=== PATIENT | female | born 1990 | race Caucasian/White ===

== ENCOUNTER 2020-11-14 13:16 | Emergency (ER) | payer OTHER, SELFPAY ==
--- NOTE | ~2020-11-14 | XR_ITS ---
EXAMINATION: XR foot RT min 3V DATE: 11/14/2020 13:39 INDICATION: Right foot injury. TECHNIQUE: 4 views of right foot were obtained. COMPARISON: None. FINDINGS: Bone alignment is normal. No fracture. Joint spaces are well maintained. IMPRESSION: 1. Normal right foot. Reviewed, dictated and finalized at location B. IMPRESSION: 1. Normal right foot.
--- NOTE | 2020-11-14 13:22 | ED.LOWEXIN ---
HPI - Extremity Injury (Lower) General Chief Complaint: Extremity Injury, Lower Stated Complaint: Right Foot Pain Time Seen by Provider: 11/14/20 13:44 Source: patient and RN notes reviewed Mode of arrival: ambulatory Limitations: no limitations History of Present Illness HPI Narrative: 30-year-old female presents with concern for right foot pain, bruising, swelling. Reports yesterday she rolled her foot causing lateral foot pain, dorsal bruising. Reports she has been using an Yayo wrap. Reports she tried to go to work this morning wearing an Yayo wrap however was in too much pain to be able to work. She denies decreased strength, sensation, range of motion. MD complaint: foot injury Related Data Home Medications Medication Instructions Recorded Confirmed Bc Pill 11/14/20 Allergies Allergy/AdvReac Type Severity Reaction Status Date / Time fexofenadine [From Norma] Allergy Rash Verified 11/14/20 13:39 Review of Systems Review of Systems: Narrative: CONSTITUTIONAL: Denies malaise, chills, sweats, or fever. SKIN: Denies lacerations or abrasions MUSCULOSKELETAL: Reports right foot pain, bruising, swelling. Denies decreased strength, range of motion NEUROLOGIC: Denies numbness, weakness All systems reviewed & are unremarkable except as noted in HPI and below PMFSH Comments At time of signature, agree with nursing past medical, surgical, social and family history. There is no relevant family history pertinent to the presenting complaint Exam Narrative: Exam Narrative: GENERAL: Well-appearing, well-nourished, and in no acute distress. HEAD: Normocephalic, atraumatic. EYES: PERRLA, conjunctivae clear NECK: Supple. CHEST: Speaks in full sentences. No respiratory distress. HEART: Regular rate and rhythm. Normal and equal peripheral pulses. EXTREMITIES: Right foot, digits of right foot have normal strength and sensation, normal range of motion. Moderate dorsal lateral edema, mild dorsal at the base of the digits 3, 4, 5 ecchymosis. 5/5 strength with ankle and digit flexion and extension. Normal sensation with sensitivity to light touch and pain. Lateral tenderness. No open wounds, no skin tenting, no devitalized tissue or atrophy, no trophic changes, no obvious deformity, alignment normal, nearby joints and structures intact. Distal pulses palpable and equal bilaterally, skin warm, dry, pink. Capillary refill less than 3 seconds. SKIN: Warm, dry, no rash. NEURO: Alert and oriented x3. PSYCH: Normal mood and affect Course Course Emergency Course: Patient is aware of diagnosis, understands and agrees to treatment plan. Anticipatory guidance given. Patient agrees to follow-up as directed and is aware of reasons to seek care at the emergency department. Portions of this record may have been created with voice recognition software Vital Signs Vital signs: Vital Signs Temperature 98.4 F 11/14/20 13:29 Pulse Rate 98 11/14/20 13:29 Respiratory Rate 16 11/14/20 13:29 Blood Pressure 138/95 H 11/14/20 13:29 Pulse Oximetry 100 11/14/20 13:29 Temperature 98.4 F 11/14/20 13:29 Pulse Rate 98 11/14/20 13:29 Respiratory Rate 16 11/14/20 13:29 Blood Pressure 138/95 H 11/14/20 13:29 Pulse Oximetry 100 11/14/20 13:29 Reviewed. MDM - Extremity Injury (Lower) MDM Narrative Medical decision making narrative: Patients injury and pain is consistent with musculoskeletal etiology. No signs of neurological or vascular compromise on exam. Compartments and tissues are soft without signs of compartment syndrome. Pain is felt appropriate for further evaluation on an outpatient basis. Imaging Data My impression: Images reviewed, interpreted by radiologist, agree, see report. Radiologist's impression: EXAMINATION: XR foot RT min 3V DATE: 11/14/2020 13:39 INDICATION: Right foot injury. TECHNIQUE: 4 views of right foot were obtained. COMPARISON: None. FINDINGS: Bone alignment is normal. No fracture. J
[2020-11-14 13:29] VITALS: BP 138/95; PULSE 98; RESP 16; TEMP 36.9; O2SAT 100
== END 2020-11-14 13:59 | disposition home or self-care (01) ==
PROVIDERS: Emergency Provider Nurse Practitioner
DX: S93.601A Unspecified sprain of right foot, initial encounter (principal); X50.9XXA Other and unspecified overexertion or strenuous movements or postures, initial encounter
CPT/HCPCS: 73630; 99203; G0463